=== PATIENT | female | born 1990 | race Caucasian/White ===

== ENCOUNTER 2018-11-20 10:36 | Emergency (ER) | payer OTHER ==
[2018-11-20 11:23] VITALS: PULSE 88; TEMP 98.8; BMI 43.5
--- NOTE | 2018-11-20 11:27 | PDOC ---
History of Present Illness - General Stated Complaint: HEADACHE Time Seen by Provider: 11/20/18 11:00 History Source: Patient Exam Limitations: No Limitations - History of Present Illness Initial Comments: 11/20/18 11:00 28YOF with complicated medical history of UTI diagnosed yesterday (started on abx), three prior brain surgeries for removal of an arachnoid cyst (two in the past year, one distantly about 20 years ago), left hemiplegia as complication from prior brain surgery, MS, epilepsy, major depression, anxiety, and ADHD who was BIBEMS from [facility] for headache all weekend worse this morning. She describes it as similar to her normal headaches for which she has been given Dilaudid and Fentanyl. She states she was given Tylenol at [facility] this morning but it did not help. She describes light and noise sensitivity but denies vision changes, speech/swallow changes, new neck pain/ back pain, new numbness/tingling/focal weakness, or other symptoms. Past History - Past Medical History Allergies/Adverse Reactions: Allergies Allergy/AdvReac Type Severity Reaction Status Date / Time No Known Allergies Allergy Verified 11/20/18 11:02 Home Medications: Ambulatory Orders Acetaminophen [Tylenol -] 1,000 mg PO Q8H PRN 11/20/18 Alprazolam [Xanax Xr] 1 mg PO Q8H 11/20/18 Baclofen [Lioresal -] 10 mg PO TID 11/20/18 Baclofen [Lioresal -] 20 mg PO HS 11/20/18 Cyanocobalamin [Vitamin B12 -] 1,000 mcg PO DAILY 11/20/18 Docusate Sodium [Colace] 100 mg PO Q8H 11/20/18 Ergocalciferol [Vitamin D2] 50,000 unit PO Q7D@1000 11/20/18 Gabapentin [Neurontin] 600 mg PO Q8H 11/20/18 Hydrocortisone 0.5% Cream [Hytone 0.5% Cream -] 1 applic TP DAILY 11/20/18 Hydromorphone HCl [Dilaudid] 8 mg PO Q6H PRN 11/20/18 Hydroxyzine Pamoate 25 mg PO TID 11/20/18 Ibuprofen [Motrin -] 400 mg PO QID PRN 11/20/18 Lamotrigine [Lamictal Xr] 200 mg PO HS 11/20/18 Levetiracetam 750 mg PO BID 11/20/18 Melatonin 10 mg PO HS 11/20/18 Nystatin Cream [Mycostatin] 1 applic TP BID 11/20/18 Pantoprazole Sodium [Protonix -] 40 mg PO DAILY 11/20/18 Ranitidine HCl [Zantac] 150 mg PO DAILY 11/20/18 Venlafaxine HCl ER [Effexor Xr -] 37.5 mg PO DAILY 11/20/18 Review of Systems - Review of Systems Able to Perform ROS?: Yes Comments:: 11/20/18 11:27 GEN: no fever, chills, malaise, generalized weakness, or weight change HEENT: no ear pain, sore throat, vision change, or eye pain CV: no chest pain, palpitations, lightheadedness, syncope, or edema RESP: no cough, wheezing, or SOB GI: no abdominal pain, nausea, vomiting, diarrhea, constipation, or white/black/ bloody stool : dysuria, no hematuria, incontinence, retention, bleeding, or discharge MSK: no neck/back pain, muscle weakness/pain, or joint swelling/pain NEURO: headache, photophobia, phonophobia, no seizure, vertigo, numbness, tingling, or focal weakness PSYCH: no substance use, no behavior change SKIN: no jaundice, no rash ROS otherwise negative except as noted in HPI *Physical Exam - Physical Exam Comments: 11/20/18 11:28 GENERAL: uncomfortable-appearing, laying on bed in dark room, A/Ox4, mild distress, answers questions appropriately HEENT: PERRLA, EOMI, moist mucous membranes, old well-healed craniotomy scar overlying right mormonism NECK/BACK: no midline ttp, no spinal stepoff or deformity, no hematoma, full ROM , neck supple CARDIOVASCULAR: regular rate/rhythm, normal S1S2, no MGR, strong peripheral pulses, capillary refill <2 seconds, extremities wwp, no edema LUNGS/RESPIRATORY: no respiratory distress, CTAB GI/ABDOMEN: symmetric [id number], normoactive BS, soft, no ttp, no midline pulsatile masses : no CVA tenderness EXTREMITIES: no muscle atrophy, no acute deformity SKIN: warm and dry, a bit pale, no jaundice, no rash, no bruising, no skin breakdown, no cuts, no lesions NEUROLOGICAL: GCS 15, CN II-XII grossly intact, 5/5 strength proximally and distally to right extremities, left extremity hemiplegia stated per baseline, no facial droop ED Treatment Course - LABORATORY CBC & Chemistry Diagram: 11/20/18 12:08 11/20/18 10:08 Medical Decision Making - Medical Decision Making 11/20/18 11:42 Adult female Pt p/w headache, no reported mechanism for injury, no new red flag symptoms (see HPI). JUNE not worse on awakening in the AM, no B symptoms, trauma, fever, syncope, vision loss, new n/t/w focally, sudden onset, etc. However she has complex h/o arachnoid cyst and MS. Initial Vital Signs Temp Pulse Resp BP Pulse Ox 98.8 F 88 19 119/63 99 11/20/18 10:37 11/20/18 10:37 11/20/18 10:37 11/20/18 10:37 11/20/18 10:37 Exam: As noted in Physical Exam section. DDX IBNLT: mass lesion, primary JUNE syndrome (tension/migraine/cluster/other incl. primary cough JUNE, exertional JUNE, postcoital JUNE), unlikely any other more serious etiology i.e. SAH (no sudden onset), venous sinus thrombosis, ruptured/ acutely expanded aneurysm, preeclampsia/eclampsia, encephalitis, meningitis, etc. W/U ordered: Labs as noted below Head CT [place] ordered: Reglan+Benadryl 11/20/18 12:27 I spoke with nursing [employer] representative on for [facility] now. She normally gets Dilaudid 8 mg q6h prn, last at 6:30am. She also got Tylenol 1000 mg at 10am. Ibuprofen 400 mg is on her AUG but she had none today. Per RN EMS was initially at [facility] to take her to a Urology appointment with Dr. Vidales. However the RN states the patient requested to have her BP checked and it was 180s/100s. Somehow the decision was made that she would come to the ED instead. EMS planned to take her to [facility] ED (she normally gets care at [facility]). However the patient requested to come to the [facility] ED instead per RN report. CT: Labs: Reassessment: Repeat VS: DISCHARGE This patient has gotten significant relief of symptoms while in the ED. On last reassessment, vitals are wnl, pain is reasonably controlled, and exam is benign. Workup is not concerning for emergency-level pathology at this time. This patient is appropriate for discharge home w/ close outpatient f/u. She is comfortable with this plan. She will take Motrin and/or Tylenol for pain. She will follow up with her primary care provider in the next 1-3 days. Specific return precautions are discussed and they will come back to the ER if necessary. *DC/Admit/Observation/Transfer Diagnosis at time of Disposition: Headache Qualifiers: Headache type: unspecified Headache chronicity pattern: unspecified pattern Intractability: not intractable Qualified Code(s): R51 - Headache - Discharge Dispostion Disposition: SNF FACILITY Condition at time of disposition: Stable Decision to Admit order: No - Referrals Referrals: Micah Burgess [Primary Care Provider] - - Patient Instructions Printed Discharge Instructions: DI for Headache Additional Instructions: You were seen in the ER for a headache. We did an exam, and we did not find any signs of an emergency. After our assessment, we believe you are not having a medical emergency and you are safe to go home. Please take [id number] pain relievers as recommended by your primary doctor. Stay very well-hydrated, and try avoiding foods containing the chemicals tyramine and nitrates (such as chocolate, cheese, and processed meats) because these are associated with migraine-type headaches. Follow up with your primary care provider(s) in the next 1-3 days. Call their clinic [facility], tell them you were seen in the er, and tell them you need an appointment. During this appointment, talk with your primary care provider about oral contraceptives (if you are taking them) because these also can be associated with some types of headaches. Please come back to the ER at any time, 24 hours a day, for any new or worsening symptoms, like worsening headache, new numbness/tingling, fainting, dizziness, new vision changes, high fever, or other symptoms. If you are having symptoms that make it unsafe to drive, please call 911. - Post Discharge Activity
[2018-11-20] MEDS ORDERED: METOCLOPRAMIDE HCL INJECTION 10 MG/2 ML VIAL IVPB ONE (11:38)
[2018-11-20] MEDS ORDERED: METOCLOPRAMIDE HCL INJECTION 10 MG/2 ML VIAL ONE (11:53)
[2018-11-20] MEDS ORDERED: HYDROmorphone HCL CARPU-JECT 2 MG/1 ML DISP.SYRIN IVPUSH ONE (12:38)
[2018-11-20 12:39] LABS: HCG,QUALITATIVE URINE Negative
[2018-11-20 12:44] LABS: EPI CELLS 0.2 /HPF (0-5/HPF); HYALINE CASTS 15 /lpf (0-8); PH,URINE 8.5 (5.0-8.0); URINE APPEARANCE CLEAR; URINE BACTERIA 6.9 /hpf (NEGATIVE); URINE BILIRUBIN NEGATIVE (NEGATIVE); URINE COLOR YELLOW; URINE GLUCOSE (UA) NEGATIVE (NEGATIVE); URINE KETONE NEGATIVE (NEGATIVE); URINE LEUK ESTERASE 3+ (NEGATIVE); URINE NITRITE NEGATIVE (NEGATIVE); URINE PROTEIN NEGATIVE (NEGATIVE); URINE RBC 3 /hpf (0-4); URINE UROBILINOGEN 0.2 mg/dL (0.2-1.0); URINE WBC 145 /hpf (0-5)
[2018-11-20 13:10] LABS: BASO % 0.4 % (0-2.0); EOS % 1.7 % (0-4.5); HEMATOCRIT 38.8 % (32.4-45.2); HEMOGLOBIN 13.3 GM/dL (10.7-15.3); LYMPH % 20.9 % (8-40); MCH 32.1 pg (25.7-33.7); MCHC 34.3 g/dl (32.0-36.0); MEAN CELL VOLUME 93.6 fl (80-96); MONO % 7.2 % (3.8-10.2); NEUT % 69.8 % (42.8-82.8); RBC 4.14 M/mm3 (3.60-5.2); RDW 11.7 % (11.6-15.6)
[2018-11-20 13:16] LABS: PLATELET COUNT 339 K/MM3 (134-434)
[2018-11-20 13:26] LABS: ALBUMIN 3.8 g/dl (3.4-5.0); BILIRUBIN,TOTAL 0.3 mg/dL (0.2-1); BLOOD UREA NITROGEN 5.1 mg/dL (7-18); CALCIUM 9.3 mg/dL (8.5-10.1); CREATININE 0.6 mg/dL (0.55-1.3); POTASSIUM 4.1 mmol/L (3.5-5.1); TOT PROT 7.2 g/dl (6.4-8.2)
--- NOTE | 2018-11-20 14:47 | PDOC ---
Documentation entered by Catherine Sweet SCRIBE, acting as scribe for Paulo Daniel MD. Paulo Daniel MD: This documentation has been prepared by the scribe, Catherine Sweet SCRIBE, under my direction and personally reviewed by me in its entirety. I confirm that the documentation accurately reflects all work, treatment, procedures, and medical decision making performed by me. Attending Attestation - Resident Resident Name: Debby Valenzuela - ED Attending Attestation I have performed the following: I have examined & evaluated the patient, The case was reviewed & discussed with the resident, I agree w/resident's findings & plan, Exceptions are as noted - HPI HPI: 11/20/18 12:27 The patient is a 28-year-old female from [facility], with a past medical history of 3 brain surgeries for removal of an arachnoid cyst (has been resected 3x, 2x in the past year and 1x about 20 years ago), left hemiplegia ( complication after brain surgery), MS, epilepsy, depression, anxiety, ADHD, who presents to the ED with feeling unwell with that she's been feeling generally weak, also endorses mild headache that she endorses a similar to her previous headaches. Patient has been on dilaudid for her headaches chronically. There is been no associated vision changes, focal numbness, tingling, weakness, fever, chills, cough, dysuria, urinary frequency. Allergies: NKA PCP: Dr. Micah Burgess - Physicial Exam PE: 11/20/18 12:28 GENERAL: The patient is awake, alert, and fully oriented, Nontoxic - in no acute distress, obese HEAD: Normocephalic, atraumatic. EYES: extraocular movements intact, sclera anicteric, conjunctiva clear. ENT: Normal voice, Moist mucous membranes. NECK: Normal range of motion, supple LUNGS: Breath sounds equal, clear to auscultation bilaterally. No wheezes, no rhonchi, no rales. HEART: Regular rate and rhythm, without murmur, rub or gallop. ABDOMEN: Soft, nontender, No guarding, no rebound.No CVA tenderness EXTREMITIES: Normal range of motion, no edema. NEUROLOGICAL: No facial assymetry, Normal speech, no movement/sensation in LUE/ LLE PSYCH: Normal mood, normal affect. SKIN: Warm, Dry, normal turgor, - Medical Decision Making 11/20/18 11:30 28y F hx of MS, arachnoid cyst (sp resection x 2 cb L hemiplegia), psych, presents with malaise for the past 2 days, notes she was recently treated for a UTI - denies any fever/chills, back pain, cp, abd pain, new vision changes, numbness/tingling/ewakness. Pt notes the headache is similar to previous headaches. exam at baseline will obtain blood work to r/o anemia, metaoblic derangement, head ct for her headache 11/20/18 15:21 pt feeling improved - notes that she would want to go home does not want to get her CT head - as pt is at baseline currently wand improved h/a will defer CT currently will dc back to [facility] with pmd/neuro fu return precautions wer discussed
[2018-11-20 15:36] VITALS: BP 122/84
== END 2018-11-20 15:49 ==
LOC: JER 10:36
PROC: 3E033GC Introduction of Other Therapeutic Substance into Peripheral Vein, Percutaneous Approach (ICD-10-PCS; principal; 2018-11-20)
PROC: 3E033GC Introduction of Other Therapeutic Substance into Peripheral Vein, Percutaneous Approach (ICD-10-PCS; 2018-11-20)
DX: R51 Headache (principal); F41.9 Anxiety disorder, unspecified; F32.9 Major depressive disorder, single episode, unspecified; F90.9 Attention-deficit hyperactivity disorder, unspecified type; G40.909 Epilepsy, unspecified, not intractable, without status epilepticus; G35 Multiple sclerosis; Z87.440 Personal history of urinary (tract) infections
CPT/HCPCS: 36415; 80053; 81003; 84703; 85025; 96374; 96375; 99282-25

== ENCOUNTER 2018-12-14 16:30 | Inpatient (IN) | payer OTHER ==
--- NOTE | 2018-12-14 17:44 | PDOC ---
History of Present Illness - General Chief Complaint: Headache Stated Complaint: HEADACHE Time Seen by Provider: 12/14/18 16:53 - History of Present Illness Initial Comments: Ms. Costello is a 28F s/p 3 craniotomies for arachnoid cyst (2 last year and 1 twenty years ago) with PMH of left hemiplegia, primary progressive MS, epilepsy , depression, anxiety, presenting today with swelling on the right temporal aspect of her head and headache. Report that the swelling started 3 weeks ago. Lives in a detention, reports that nurse noticed right eyelid droop. Reports photophobia and phonophobia. Describes the headache as throbbing, starting from the right side and spreading to the entire head and down her neck. Denies fever , denies cough, denies vision changes. She was seen here last month for similar complaints, but describes that this headache is worse. Past History - Past Medical History Allergies/Adverse Reactions: Allergies Allergy/AdvReac Type Severity Reaction Status Date / Time No Known Allergies Allergy Verified 11/20/18 11:02 Home Medications: Ambulatory Orders Alprazolam [Xanax Xr] 1 mg PO Q8H 11/20/18 Baclofen [Lioresal -] 10 mg PO TID 11/20/18 Baclofen [Lioresal -] 20 mg PO HS 11/20/18 Cyanocobalamin [Vitamin B12 -] 1,000 mcg PO DAILY 11/20/18 Docusate Sodium [Colace] 100 mg PO Q8H 11/20/18 Ergocalciferol [Vitamin D2] 50,000 unit PO Q7D@1000 11/20/18 Gabapentin [Neurontin] 600 mg PO Q8H 11/20/18 Hydrocortisone 0.5% Cream [Hytone 0.5% Cream -] 1 applic TP DAILY 11/20/18 Hydromorphone HCl [Dilaudid] 8 mg PO Q6H PRN 11/20/18 Hydroxyzine Pamoate 25 mg PO TID 11/20/18 Ibuprofen [Motrin -] 400 mg PO QID PRN 11/20/18 Lamotrigine [Lamictal Xr] 200 mg PO HS 11/20/18 Levetiracetam 750 mg PO BID 11/20/18 Melatonin 10 mg PO HS 11/20/18 Nystatin Cream [Mycostatin] 1 applic TP BID 11/20/18 Pantoprazole Sodium [Protonix -] 40 mg PO DAILY 11/20/18 Ranitidine HCl [Zantac] 150 mg PO DAILY 11/20/18 Venlafaxine HCl ER [Effexor Xr -] 37.5 mg PO DAILY 11/20/18 Acetaminophen 500 mg PO TID 12/14/18 Doxepin HCl [Sinequan -] 25 mg PO HS 12/14/18 Nystatin Cream [Mycostatin] 1 applic TP BID 12/14/18 Ondansetron [Zofran -] 4 mg PO TID 12/14/18 Sennosides [Senna] 8.6 mg PO HS 12/14/18 Anemia: Yes COPD: No GI Disorders: Yes (reflux) Psychiatric Problems: Yes (depression,anxiety,adhd) - Surgical History Neurologic Surgery: Yes - Suicide/Smoking/Psychosocial Hx Smoking History: Never smoked Review of Systems - Review of Systems Able to Perform ROS?: Yes Is the patient limited Romansh proficient: No Constitutional: Yes: See HPI. No: Chills, Fever HEENTM: Yes: See HPI, Other (photophobia, phonophobia ). No: Eye Pain, Recent change in vision, Hearing Loss, Throat Swelling, Mouth Swelling Respiratory: Yes: See HPI. No: Cough, Orthopnea, Shortness of Breath Cardiac (ROS): Yes: See HPI. No: Chest Pain, Edema, Irregular Heart Rate, Lightheadedness, Palpitations, Syncope ABD/GI: Yes: Constipated. No: Abdominal Distended, Nausea, Vomiting : Yes: See HPI, Burning, Dysuria. No: Discharge, Frequency, Flank Pain Musculoskeletal: Yes: See HPI, Muscle Weakness. No: Back Pain, Joint Swelling Integumentary: Yes: See HPI. No: Bruising, Erythema Neurological: Yes: See HPI, Headache, Paresthesia, Pre-Existing Deficit, Weakness. No: Numbness Psychiatric: Yes: Anxiety, Depression Endocrine: No: Symptoms Reported Hematologic/Lymphatic: No: Symptoms Reported *Physical Exam - Vital Signs Last Vital Signs Temp Pulse Resp BP Pulse Ox 98.2 F 80 19 117/69 98 12/14/18 16:40 12/14/18 16:40 12/14/18 16:40 12/14/18 16:40 12/14/18 16:40 - Physical Exam General Appearance: Yes: Appropriately Dressed. No: Apparent Distress HEENT: positive: EOMI, MIRYAM, Normal ENT Inspection, Normal Voice, Pharynx Normal , Other (right sided eye lid droop ). negative: Tonsillar Exudate Neck: positive: Tender, Trachea midline, Supple Respiratory/Chest: positive: Lungs Clear, Normal Breath Sounds. negative: Chest Tender, Respiratory Distress, Accessory Muscle Use Cardiovascular: positive: Regular Rhythm, Regular Rate. negative: Edema, JVD Vascular Pulses: Dorsalis-Pedis (R): 2+, Doralis-Pedis (L): 2+ Gastrointestinal/Abdominal: positive: Soft. negative: Tender, Organomegaly, Pulsatile Mass Musculoskeletal: positive: Normal Inspection. negative: CVA Tenderness Extremity: positive: Normal Capillary Refill. negative: Normal Range of Motion (left sided hemiplegia, right sided weakness ), Tender Integumentary: positive: Normal Color, Dry, Warm. negative: Cyanotic, Erythema Neurologic: positive: Fully Oriented, Alert, Normal Response, Respond to painful stimul (diminished sensation on left side of face, no sensation on left side of body ), Responsive, Finger to Nose (intact ). negative: water pump servicer II-XII NML intact (right sided eye lid droop, limited assessment ), Motor Strength 5/5 ( left hemiplegia, RUE and RLE 2/5 strength ), EOM Palsy ED Treatment Course - LABORATORY CBC & Chemistry Diagram: 12/14/18 18:19 12/14/18 18:19 Medical Decision Making - Medical Decision Making 12/14/18 18:16 28F s/p 3 neurological surgeries for arachnoid cyst with PMH of left hemiplegia , primary progressive MS, epilepsy, depression, anxiety, presenting with right sided temporal facial swelling and headache. Headache resembles those she has on a daily basis. CT Head w/o Contrast on November 28, 2018 at [facility] shows: Right sided post operative changes are demonstrated. Presumed arachnoid cyst involving the right middle cranial fossa is redemonstrated. Multiple previously demonstrated supratentorial and infratentorial foci of abnormal signal concerning for demyelinating disease are poorly visualized on the current CT examination. Consider follow-up precontrast and postcontrast MRI examination of the brain to assess for stability of these findings. No acute intracranial hemorrhage, evidence of acute territorial infarct or midline shift of this noncontrast CT. Per neurologist Dr. Juan Carlos Cunningham, would like a follow up MRI to the CT scan she had 3 weeks ago. We discussed with the patient who states that her symptoms have not changed as of the last CT scan 3 weeks ago and she would only like the MRI. CT findings from the scan 3 weeks ago described above. Will obtain CBC, CMP, UA, CXR, EKG, and plan for admission. 12/14/18 18:40 EKG shows NSR 79 bpm, no axis deviation, no ST elevation/depression, QTc 426 ms. 12/14/18 19:59 Pt reassessed after usual dose of dilaudid. Continues having headache, very mildly improved. Dilaudid 2 mg IV and Reglan 10 mg IV given. Will plan to admit. 12/14/18 20:[address] Curran (neurologist) who recommends IV depakote for the patient's IV headache and defers admission decision to the inpatient team. 12/14/18 21:08 Spoke with Page Sanchez NP, who agrees to come down and admit the patient for Dr. Nick's group. *DC/Admit/Observation/Transfer Diagnosis at time of Disposition: Headache Qualifiers: Headache type: unspecified Headache chronicity pattern: chronic headache - Discharge Dispostion Condition at time of disposition: Stable Decision to Admit order: Yes - Referrals - Patient Instructions - Post Discharge Activity
[2018-12-14] MEDS ORDERED: HYDROmorphone HCL CARPU-JECT 2 MG/1 ML DISP.SYRIN IVPB ONE (18:30)
[2018-12-14] MEDS ORDERED: ACETAMINOPHEN 1000 MG/100 ML VIAL (NON FORMULARY) IVPB ONE (18:30)
[2018-12-14] MEDS ORDERED: HYDROmorphone HCL 2 MG TABLET PO ONE ×2 (18:35→22:25)
[2018-12-14] MEDS ORDERED: ACETAMINOPHEN INJECTION 100 ML IVPB ONE (18:39)
[2018-12-14] MEDS ORDERED: HYDROmorphone HCL 2 MG TABLET ONE ×2 (18:39→22:50)
[2018-12-14 18:52] LABS: BASO % 0.3 % (0-2.0); EOS % 2.5 % (0-4.5); HEMATOCRIT 34.9 % (32.4-45.2); LYMPH % 29.2 % (8-40); MCH 31.6 pg (25.7-33.7); MCHC 34.4 g/dl (32.0-36.0); MEAN CELL VOLUME 91.7 fl (80-96); MEAN PLT VOLUME 7.9 fl (7.5-11.1); MONO % 9.7 % (3.8-10.2); NEUT % 58.3 % (42.8-82.8); PLATELET COUNT 342 K/MM3 (134-434); RBC 3.81 M/mm3 (3.60-5.2); RDW 11.6 % (11.6-15.6); WHITE BLOOD COUNT 6.6 K/mm3 (4.0-10.0)
[2018-12-14 19:02] LABS: ALBUMIN 3.6 g/dl (3.4-5.0); BILIRUBIN,TOTAL 0.2 mg/dL (0.2-1); BLOOD UREA NITROGEN 8.3 mg/dL (7-18); CALCIUM 8.8 mg/dL (8.5-10.1); CREATININE 0.6 mg/dL (0.55-1.3); TOT PROT 6.7 g/dl (6.4-8.2)
[2018-12-14 19:21] LABS: EPI CELLS 4.2 /HPF (0-5/HPF); HYALINE CASTS 29 /lpf (0-8); URINE APPEARANCE TURBID; URINE BILIRUBIN NEGATIVE (NEGATIVE); URINE COLOR YELLOW; URINE GLUCOSE (UA) NEGATIVE (NEGATIVE); URINE KETONE NEGATIVE (NEGATIVE); URINE LEUK ESTERASE 3+ (NEGATIVE); URINE NITRITE POSITIVE (NEGATIVE); URINE PROTEIN TRACE (NEGATIVE); URINE RBC 5 /hpf (0-4); URINE UROBILINOGEN 0.2 mg/dL (0.2-1.0); URINE WBC 563 /hpf (0-5)
--- NOTE | 2018-12-14 19:21 | PDOC ---
Documentation entered by Mechelle Andrews SCRIBE, acting as scribe for Siri Hong MD. Siri Hong MD: This documentation has been prepared by the Darryl zee Xhesika, SCRIBE, under my direction and personally reviewed by me in its entirety. I confirm that the documentation accurately reflects all work, treatment, procedures, and medical decision making performed by me. Attending Attestation - Resident Resident Name: Hollis Fraga - ED Attending Attestation I have performed the following: I have examined & evaluated the patient, The case was reviewed & discussed with the resident, I agree w/resident's findings & plan - HPI HPI: 12/14/18 19:15 The patient is a 28-year-old female from [facility], with a past medical history of 3 brain surgeries for removal of an arachnoid cyst (has been resected 3x, 2x in the past year and 1x about 20 years ago), left hemiplegia ( complication after brain surgery), MS, epilepsy, depression, anxiety, ADHD, who presents to the ED with 1 week of headache and swelling of the R temporal aspect of her head. The patient describes the headache as a throbbing sensation that began at her right side and radiates to the entire head and down her neck. The patient states she endorses photophobia secondary to her symptoms. The patient states her nurse at [facility] noticed right eyelid droop yesterday. The patient states she was seen in ED for headaches, however, this is worse than prior headache since last visit last head CT about 3 weeks ago, post surgical changes but no acute pathology Allergies: NKA PCP: Dr. Micah Burgess 12/14/18 19:20 12/14/18 19:22 - Physicial Exam PE: 12/14/18 19:16 Agree with the resident's HPI and PE as documented in the electronic medical record. awake and alert, well appearing, rt temporal area of swelling, surgical scar healed, EOMI, PERRL, MMM, nl conjunctiva, anicteric; neck supple. lungs clear, RRR, abdomen soft nontender. Back nontender. No peripheral edema. normal color for ethnicity, WWP. right eyelid droop. remainder of CN II-XII grossly intact left arm and leg hemiplegia - baseline right arm and leg 5/5, SILT. speech clear 12/14/18 19:19 12/14/18 20:52 12/19/18 20:07 - Medical Decision Making 12/14/18 19:19 See HPI for details. Prior notes reviewed, including admissions, discharges and consultations. Vital signs reviewed, wnl. ddx migraine, tension headache, infection, cyst, bleed laboratory results and imaging reviewed, basic labs and lytes wnl, EKG normal sinus rhythm at 79 bpm, no interval abnormalities, narrow QRS, ST and T wave segments and morphology normal. Nonspecific T wave abnormalities ED course -interventions: analgesia, dilaudid (PO home dose and IV rescue), reglan, tylenol - some improvement. treating as migraine but also with baseline neuro abnormalities and arachnoid cyst with prior imaging last month per records and discussion with facility neurologist Dr Cunningham by resident, with her sx, requested admission/NSG cs and MRI imaging with recent change and worsening headache cs with Dr Curran, per request of UMBRELLA SUPERVISOR and admitting service s/o DEVIKA Sanchez for admission, will go to Dr Parish Dumont 12/19/18 20:07 Heart Score/ECG Review #1 ECG reviewed & interpreted by me at: 18:20 General ECG Interpretation: Sinus Rhythm, Normal Rate, Normal Intervals Compared to previous ECG there are: Previous ECG unavail 12/14/18 19:50 EKG normal sinus rhythm at 79 bpm, no interval abnormalities, narrow QRS, ST and T wave segments and morphology normal. Nonspecific T wave abnormalities in III
[2018-12-14] MEDS ORDERED: HYDROmorphone HCL CARPU-JECT 2 MG/1 ML DISP.SYRIN IVPUSH ONE (19:55)
[2018-12-14] MEDS ORDERED: METOCLOPRAMIDE HCL INJECTION 10 MG/2 ML VIAL IVPUSH ONE (19:55)
[2018-12-14] MEDS ORDERED: HYDROmorphone HCl 2 MG/ML VIAL ONE (20:05)
[2018-12-14] MEDS ORDERED: LIDOCAINE 5% TOPICAL PATCH TP ONE (20:05)
[2018-12-14] MEDS ORDERED: METOCLOPRAMIDE HCL INJECTION 10 MG/2 ML VIAL ONE (20:05)
[2018-12-14] MEDS ORDERED: LIDOCAINE 5% TOPICAL PATCH ONE (22:09)
[2018-12-15] MEDS: LIDOCAINE PATCH REMOVAL MC SCH ×2 (00:09→22:06)
--- NOTE | 2018-12-15 00:57 | HP ---
Admitting History and Physical - Primary Care Physician PCP: Micah Burgess - Admission Chief Complaint: Headache, R- Facial Swelling History of Present Illness: This is a 28 y/o woman from [facility] with a significant medical history of three brain surgeries for removal of an arachnoid cyst (has been resected 3x, 2x in the past year and 1x about 20 years ago), left hemiplegia (complication after brain surgery), MS, Epilepsy, Depression, Anxiety, ADHD. Who presents to the ED with 1 week of headache and swelling of the R temporal aspect of her head. The patient describes the headache as a "throbbing sensation" that began at her right side and radiates to the entire head and down her neck. The patient reports photophobia. The patient states that her nurse at [facility] noticed her right eyelid droop yesterday. The patient states she was seen in ED for headaches, however, this is worse than prior headache since last visit last head CT about 3 weeks ago, post surgical changes but no acute pathology. The patient reports that her neurologist at the facility wants her to have a Brain MRI. 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: Multiple Sclerosis, Seizure (epilepsy) Psych: Yes: Anxiety, Depression, Other (ADHD) Musculoskeletal: Yes: Hemiplegia (left) - Past Surgical History Past Surgical History: Yes: Craniotomy (Crainoplasty) - Smoking History Smoking history: Never smoked - Social History Usual Living Arrangement: Yes: Correction ADL: Support Services History of Recent Travel: No Home Medications - Allergies Allergies/Adverse Reactions: Allergies Allergy/AdvReac Type Severity Reaction Status Date / Time No Known Allergies Allergy Verified 11/20/18 11:02 - Home Medications Home Medications: Ambulatory Orders Alprazolam [Xanax Xr] 1 mg PO Q8H 11/20/18 Baclofen [Lioresal -] 10 mg PO TID 11/20/18 Baclofen [Lioresal -] 20 mg PO HS 11/20/18 Cyanocobalamin [Vitamin B12 -] 1,000 mcg PO DAILY 11/20/18 Docusate Sodium [Colace] 100 mg PO Q8H 11/20/18 Ergocalciferol [Vitamin D2] 50,000 unit PO Q7D@1000 11/20/18 Gabapentin [Neurontin] 600 mg PO Q8H 11/20/18 Hydrocortisone 0.5% Cream [Hytone 0.5% Cream -] 1 applic TP DAILY 11/20/18 Hydromorphone HCl [Dilaudid] 8 mg PO Q6H PRN 11/20/18 Hydroxyzine Pamoate 25 mg PO TID 11/20/18 Ibuprofen [Motrin -] 400 mg PO QID PRN 11/20/18 Lamotrigine [Lamictal Xr] 200 mg PO HS 11/20/18 Levetiracetam 750 mg PO BID 11/20/18 Melatonin 10 mg PO HS 11/20/18 Nystatin Cream [Mycostatin] 1 applic TP BID 11/20/18 Pantoprazole Sodium [Protonix -] 40 mg PO DAILY 11/20/18 Ranitidine HCl [Zantac] 150 mg PO DAILY 11/20/18 Venlafaxine HCl ER [Effexor Xr -] 37.5 mg PO DAILY 11/20/18 Acetaminophen 500 mg PO TID 12/14/18 Doxepin HCl [Sinequan -] 25 mg PO HS 12/14/18 Nystatin Cream [Mycostatin] 1 applic TP BID 12/14/18 Ondansetron [Zofran -] 4 mg PO TID 12/14/18 Sennosides [Senna] 8.6 mg PO HS 12/14/18 Family Disease History - Family Disease History Family History: Unable to Obtain Review of Systems - Review of Systems Constitutional: reports: No Symptoms Eyes: reports: Photophobia, Other (right eye lid droop) HENT: reports: No Symptoms Neck: reports: No Symptoms Cardiovascular: reports: No Symptoms Respiratory: reports: No Symptoms Gastrointestinal: reports: No Symptoms Genitourinary: reports: No Symptoms Breasts: reports: No Symptoms Reported Musculoskeletal: reports: Muscle Weakness (chronic) Neurological: reports: Headache, Pre-Existing Deficit Endocrine: reports: No Symptoms Hematology/Lymphatic: reports: No Symptoms Psychiatric: reports: No Symptoms Pain Intensity: 7 Physical Examination Vital Signs: Vital Signs Temperature 98.5 F 12/14/18 22:55 Pulse Rate 77 12/14/18 22:55 Respiratory Rate 19 12/14/18 22:55 Blood Pressure 119/70 12/14/18 22:55 O2 Sat by Pulse Oximetry (%) 99 12/14/18 22:55 Constitutional: Yes: Anxious, Mild Distress, Obese Eyes: Yes: Conjunctiva Clear, EOM Intact, PERRL HENT: Yes: WNL, Atraumatic, Normocephalic Neck: Yes: WNL, Supple, Trachea Midline Cardiovascular: Yes: WNL, Regular Rate and Rhythm, S1, S2 Respiratory: Yes: WNL, Regular, CTA Bilaterally Gastrointestinal: Yes: WNL, Normal Bowel Sounds, Soft, Abdomen, Obese ...Rectal Exam: Yes: Deferred Renal/: Yes: [place] Present Breast(s): Yes: WNL Musculoskeletal: Yes: Muscle Weakness (L-sided- exisiting deficit) Edema: No Peripheral Pulses WNL: Yes Neurological: Yes: Alert, Oriented, Pre-Existing Deficit, Weakness. No: Facial Droop Psychiatric: Yes: WNL, Alert, Oriented Labs: CBC, BMP 12/14/18 18:19 12/14/18 18:19 Laboratory Results - last 24 hr 12/14/18 12/14/18 12/14/18 18:19 18:19 18:19 WBC 6.6 RBC 3.81 Hgb 12.0 Hct 34.9 MCV 91.7 MCH 31.6 MCHC 34.4 RDW 11.6 Plt Count 342 MPV 7.9 Absolute Neuts (auto) 3.9 Neutrophils % 58.3 Lymphocytes % 29.2 D Monocytes % 9.7 Eosinophils % 2.5 Basophils % 0.3 Nucleated RBC % 0 Sodium 140 Potassium 4.0 Chloride 106 Carbon Dioxide 30 Anion Gap 4 L BUN 8.3 Creatinine 0.6 Est GFR (CKD-EPI)AfAm 142.76 Est GFR (CKD-EPI)NonAf 123.17 Random Glucose 91 Calcium 8.8 Total Bilirubin 0.2 AST 12 L ALT 19 Alkaline Phosphatase 69 Total Protein 6.7 Albumin 3.6 Serum , Qual Negative Urine Color Urine Appearance Urine pH Ur Specific [place] Urine Protein Urine Glucose (UA) Urine Ketones Urine Blood Urine Nitrite Urine Bilirubin Urine Urobilinogen Ur Leukocyte Esterase Urine WBC (Auto) Urine RBC (Auto) Urine Casts (Auto) U Pathogenic Cast Auto U Epithel Cells (Auto) Urine Bacteria (Auto) 12/14/18 19:03 WBC RBC Hgb Hct MCV MCH MCHC RDW Plt Count MPV Absolute Neuts (auto) Neutrophils % Lymphocytes % Monocytes % Eosinophils % Basophils % Nucleated RBC % Sodium Potassium Chloride Carbon Dioxide Anion Gap BUN Creatinine Est GFR (CKD-EPI)AfAm Est GFR (CKD-EPI)NonAf Random Glucose Calcium Total Bilirubin AST ALT Alkaline Phosphatase Total Protein Albumin Serum , Qual Urine Color Yellow Urine Appearance Turbid Urine pH 5.0 D Ur Specific [place] 1.021 Urine Protein Trace Urine Glucose (UA) Negative Urine Ketones Negative Urine Blood Trace Urine Nitrite Positive H Urine Bilirubin Negative Urine Urobilinogen 0.2 Ur Leukocyte Esterase 3+ H Urine WBC (Auto) 563 Urine RBC (Auto) 5 Urine Casts (Auto) 29 U Pathogenic Cast Auto None U Epithel Cells (Auto) 4.2 Urine Bacteria (Auto) 6925.0 Current Medications Generic Name Dose Route Start Last Admin Trade Name Freq PRN Reason Stop Dose Admin Acetaminophen 650 mg 12/15/18 01:19 Tylenol - PO Q6H PRN PAIN LEVEL 6-10 Baclofen 20 mg 12/15/18 22:00 Lioresal - PO HS [facility] Baclofen 10 mg 12/15/18 06:00 Lioresal - PO TID [facility] Diphenhydramine HCl 25 mg 12/15/18 03:00 Benadryl - PO 12/15/18 03:01 ONCE ONE Docusate Sodium 100 mg 12/15/18 02:58 Colace - PO TID [facility] Doxepin HCl 25 mg 12/15/18 22:00 Sinequan - PO HS [facility] Gabapentin 600 mg 12/15/18 02:45 Neurontin - PO TID [facility] Levetiracetam 500 mg/ 750 mg 12/15/18 02:45 Levetiracetam 250 mg PO BID [facility] Miscellaneous 1 each 12/14/18 22:00 12/15/18 00:09 Lidoderm Patch Removal MC 1 each DAILY@2200 [facility] Administration Non-Formulary Medication 8 mg 12/15/18 06:00 Hydromorphone Hcl [Dilaudid] PO Q6H PRN PAIN Non-Formulary Medication 200 mg 12/15/18 22:00 Lamotrigine [Lamictal Xr] PO HS [facility] Pantoprazole Sodium 40 mg 12/15/18 10:00 Protonix - PO DAILY [facility] Ranitidine HCl 150 mg 12/15/18 10:00 Zantac - PO DAILY [facility] Senna tab 12/15/18 22:00 Senna - PO HS [facility] Venlafaxine HCl 37.5 mg 12/15/18 10:00 Effexor Xr - PO DAILY [facility] - Results Chest X-ray: Image Reviewed Cat Scan: Pending EKG: Image Reviewed Problem List - Problems (1) Headache Assessment/Plan: r/o ICH Head CT- neg ICH, Mass Appreciate Neurology consult- aware per ED resident Neuro checks Monitor vitals Given Dilaudid and Reglan in ED with minimal relief Appreciate Pain Management Code(s): R51 - HEADACHE Qualifiers: Headache type: unspecified Headache chronicity pattern: chronic headache (2) Right facial swelling Assessment/Plan: s/p Craniotomy s/p Cranioplasty Head CT- neg ICH, mass Appreciate Neurology consult HOB elevated Aspiration Precautions Code(s): R22.0 - LOCALIZED SWELLING, MASS AND LUMP, HEAD (3) Epilepsy Assessment/Plan: stable Continue home meds Seizure Precautions Monitor vitals Code(s): G40.909 - EPILEPSY, UNSP, NOT INTRACTABLE, WITHOUT STATUS EPILEPTICUS (4) Multiple sclerosis Code(s): G35 - MULTIPLE SCLEROSIS (5) Left hemiplegia Assessment/Plan: Chronic Fall Precautions Code(s): G81.94 - HEMIPLEGIA, UNSPECIFIED AFFECTING LEFT NONDOMINANT SIDE (6) Depression Assessment/Plan: Continue home meds Code(s): F32.9 - MAJOR DEPRESSIVE DISORDER, SINGLE EPISODE, UNSPECIFIED (7) Anxiety Assessment/Plan: Continue home meds Code(s): F41.9 - ANXIETY DISORDER, UNSPECIFIED (8) ADHD Assessment/Plan: Continue home meds Code(s): F90.9 - ATTENTION-DEFICIT HYPERACTIVITY DISORDER, UNSPECIFIED TYPE Assessment/Plan This is a 28 y/o woman with a PMHx of Brain Sx x3 (for arachnoid cyst), Left Hemiplegia ( complication Brain Surgery), MS, Epilepsy, Depression, ADHD, Anxiety. Admitted for Intractable Headache, R- Facial Swelling for further evaluation of their emergent condition. Plan: See Problem List FEN Replete lytes prn Regular Diet DVT ppx SCDs TEDs Visit type - Emergency Visit Emergency Visit: Yes ED Registration Date: 12/14/18 Care time: The patient presented to the Emergency Department on the above date and was hospitalized for further evaluation of their emergent condition. - New Patient This patient is new to me today: Yes Date on this admission: 12/14/18 - Critical Care Critical Care patient: No
[2018-12-15] MEDS ORDERED: DOCUSATE SODIUM 100 MG CAPSULE (FP) PO SCH (01:15)
[2018-12-15] MEDS ORDERED: PATIENT'S OWN MEDICATION (NON-FORMULARY) (Levetiracetam [Levetiracetam] 750 MG) PO SCH (01:15)
[2018-12-15] MEDS ORDERED: METOCLOPRAMIDE HCL INJECTION 10 MG/2 ML VIAL IVPUSH ONE (02:28)
[2018-12-15] MEDS ORDERED: diphenhydrAMINE HCL 25 MG CAPSULE (FP) PO ONE ×2 (03:00→04:15)
[2018-12-15] MEDS: GABAPENTIN 300 MG CAPSULE (FP) PO SCH ×4 (04:10→21:55)
[2018-12-15 05:05] VITALS: BMI 40.3
[2018-12-15] MEDS: ACETAMINOPHEN 325 MG TABLET (FP) PO PRN ×3 (05:39→19:23)
[2018-12-15] MEDS: DOCUSATE SODIUM 100 MG CAPSULE (FP) PO SCH ×3 (06:40→21:54)
[2018-12-15] MEDS: BACLOFEN 10 MG TABLET (FP) PO SCH ×3 (06:40→22:08)
[2018-12-15] MEDS ORDERED: PT OWN MED DRAWER 7, Y5N ONE ×4 (10:53→22:10)
[2018-12-15 11:00] LABS: BASO % 0.2 % (0-2.0); HEMOGLOBIN 12.3 GM/dL (10.7-15.3); MEAN PLT VOLUME 8.2 fl (7.5-11.1); WHITE BLOOD COUNT 6.5 K/mm3 (4.0-10.0)
[2018-12-15 11:08] LABS: EOS % 2.1 % (0-4.5); HEMATOCRIT 35.7 % (32.4-45.2); LYMPH % 23.7 % (8-40); MCH 31.6 pg (25.7-33.7); MCHC 34.6 g/dl (32.0-36.0); MEAN CELL VOLUME 91.4 fl (80-96); MONO % 8.3 % (3.8-10.2); NEUT % 65.7 % (42.8-82.8); PLATELET COUNT 341 K/MM3 (134-434); RDW 11.5 % (11.6-15.6)
[2018-12-15] MEDS: PANTOPRAZOLE 40 MG TABLET (FP) PO SCH (11:09)
[2018-12-15] MEDS: RANITIDINE HCL 150 MG TABLET (FP) PO SCH (11:09)
--- NOTE | 2018-12-15 11:22 | CONSULT ---
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, Seizure (epilepsy) ...LMP: 10/18/18 Psych: Yes: Anxiety, Depression, Other (ADHD) Musculoskeletal: Yes: Hemiplegia (left) - Past Surgical History Past Surgical History: Yes: Craniotomy (Crainoplasty) - Alcohol/Substance Use Hx Alcohol Use: No - Smoking History Smoking history: Never smoked - Social History ADL: Support Services History of Recent Travel: No Home Medications - Allergies Allergies/Adverse Reactions: Allergies Allergy/AdvReac Type Severity Reaction Status Date / Time No Known Allergies Allergy Verified 11/20/18 11:02 - Home Medications Home Medications: Ambulatory Orders Alprazolam [Xanax Xr] 1 mg PO Q8H 11/20/18 Baclofen [Lioresal -] 10 mg PO TID 11/20/18 Baclofen [Lioresal -] 20 mg PO HS 11/20/18 Cyanocobalamin [Vitamin B12 -] 1,000 mcg PO DAILY 11/20/18 Docusate Sodium [Colace] 100 mg PO Q8H 11/20/18 Ergocalciferol [Vitamin D2] 50,000 unit PO Q7D@1000 11/20/18 Gabapentin [Neurontin] 600 mg PO Q8H 11/20/18 Hydrocortisone 0.5% Cream [Hytone 0.5% Cream -] 1 applic TP DAILY 11/20/18 Hydromorphone HCl [Dilaudid] 8 mg PO Q6H PRN 11/20/18 Hydroxyzine Pamoate 25 mg PO TID 11/20/18 Ibuprofen [Motrin -] 400 mg PO QID PRN 11/20/18 Lamotrigine [Lamictal Xr] 200 mg PO HS 11/20/18 Levetiracetam 750 mg PO BID 11/20/18 Melatonin 10 mg PO HS 11/20/18 Nystatin Cream [Mycostatin] 1 applic TP BID 11/20/18 Pantoprazole Sodium [Protonix -] 40 mg PO DAILY 11/20/18 Ranitidine HCl [Zantac] 150 mg PO DAILY 11/20/18 Venlafaxine HCl ER [Effexor Xr -] 37.5 mg PO DAILY 11/20/18 Acetaminophen 500 mg PO TID 12/14/18 Doxepin HCl [Sinequan -] 25 mg PO HS 12/14/18 Nystatin Cream [Mycostatin] 1 applic TP BID 12/14/18 Ondansetron [Zofran -] 4 mg PO TID 12/14/18 Sennosides [Senna] 8.6 mg PO HS 12/14/18 Physical Exam Vital Signs: Vital Signs Temperature 98.1 F 12/15/18 04:45 Pulse Rate 92 H 12/15/18 04:45 Respiratory Rate 18 12/15/18 04:45 Blood Pressure 128/78 12/15/18 04:45 O2 Sat by Pulse Oximetry (%) 100 12/15/18 05:45 Labs: CBC, BMP 12/15/18 09:50 Problem List - Problems (1) Headache Code(s): R51 - HEADACHE Qualifiers: Headache type: unspecified Headache chronicity pattern: chronic headache Assessment Plan - Diagnosis (1) Headache Status: Acute Qualifiers: Headache type: unspecified Headache chronicity pattern: chronic headache - Plan Plan: as her headache is not under control (VAS around 5 to 7)with hydromorphone 8mg prn q.6h, i will recommend to switch patient for now to Fentanyl patch 50mcg q.72h and continue with hydromorphone 2mg Q6hr PRN for breakthrough pain. Please , dont hesitate to contact me at [phone] for any question and thank you .
[2018-12-15 11:29] LABS: BLOOD UREA NITROGEN 6.4 mg/dL (7-18); CALCIUM 8.7 mg/dL (8.5-10.1); CREATININE 0.4 mg/dL (0.55-1.3); POTASSIUM 4.2 mmol/L (3.5-5.1)
--- NOTE | 2018-12-15 11:44 | PN ---
Progress Note, Physician History of Present Illness: This is a 28 y/o woman with a PMHx of Brain Sx x3 (for arachnoid cyst), Left Hemiplegia ( complication Brain Surgery), MS, Epilepsy, Depression, ADHD, Anxiety. Admitted for Intractable Headache, R- Facial Swelling for further evaluation of their emergent condition. - Current Medication List Current Medications: Active Medications Acetaminophen (Tylenol -) 650 mg PO Q6H PRN PRN Reason: PAIN LEVEL 6-10 Last Admin: 12/15/18 05:39 Dose: 650 mg Baclofen (Lioresal -) 20 mg PO [facility] Baclofen (Lioresal -) 10 mg PO TID [facility] Last Admin: 12/15/18 06:40 Dose: 10 mg Docusate Sodium (Colace -) 100 mg PO TID [facility] Last Admin: 12/15/18 06:40 Dose: 100 mg Doxepin HCl (Sinequan -) 25 mg PO [facility] Gabapentin (Neurontin -) 600 mg PO TID [facility] Last Admin: 12/15/18 06:38 Dose: 600 mg Hydromorphone HCl (Dilaudid -) 8 mg PO Q4H PRN PRN Reason: PAIN SCALE 5-10 Last Admin: 12/15/18 11:20 Dose: 8 mg Lamotrigine (Lamictal -) 200 mg PO [facility] Levetiracetam 500 mg/ (Levetiracetam 250 mg) 750 mg PO BID [facility] Last Admin: 12/15/18 10:41 Dose: Not Given Miscellaneous (Lidoderm Patch Removal) 1 each MC DAILY@2200 [facility] Last Admin: 12/15/18 00:09 Dose: 1 each Pantoprazole Sodium (Protonix -) 40 mg PO DAILY [facility] Last Admin: 12/15/18 11:09 Dose: 40 mg Ranitidine HCl (Zantac -) 150 mg PO DAILY [facility] Last Admin: 12/15/18 11:09 Dose: 150 mg Senna (Senna -) 1 tab PO [facility] Venlafaxine HCl (Effexor Xr -) 37.5 mg PO DAILY [facility] - Objective Vital Signs: Vital Signs Temperature 98.1 F 12/15/18 04:45 Pulse Rate 92 H 12/15/18 04:45 Respiratory Rate 18 12/15/18 04:45 Blood Pressure 128/78 12/15/18 04:45 O2 Sat by Pulse Oximetry (%) 100 12/15/18 05:45 Cardiovascular: Yes: S1, S2 Respiratory: Yes: Regular, CTA Bilaterally Gastrointestinal: Yes: Normal Bowel Sounds, Soft Neurological: Yes: Alert, Pre-Existing Deficit, Weakness Labs: CBC, BMP 12/15/18 09:50 12/15/18 09:50 Problem List - Problems (1) Headache Assessment/Plan: Head CT- neg ICH, Mass Neurology consult- MRI OF HEAD Neuro checks Monitor vitals Dilaudid PRN Pain Management \ Code(s): R51 - HEADACHE Qualifiers: Headache type: unspecified Headache chronicity pattern: chronic headache (2) Arachnoid cyst Assessment/Plan: s/p Craniotomy s/p Cranioplasty Head CT- neg ICH, mass Appreciate Neurology consult HOB elevated Aspiration Precautions Code(s): G93.0 - CEREBRAL CYSTS (3) UTI (urinary tract infection) Assessment/Plan: ABX PER ID' AWAIT CULTURES Code(s): N39.0 - URINARY TRACT INFECTION, SITE NOT SPECIFIED (4) Epilepsy Assessment/Plan: stable Continue home meds Seizure Precautions Monitor vitals Code(s): G40.909 - EPILEPSY, UNSP, NOT INTRACTABLE, WITHOUT STATUS EPILEPTICUS (5) Multiple sclerosis Code(s): G35 - MULTIPLE SCLEROSIS
--- NOTE | 2018-12-15 13:19 | CONSULT ---
Consult - text type - Consultation Consultation Note: NEUROLOGY CONSULT GREATLY APPRECIATED: Events reviewed and discussed with ER staff last night, nursing staff today and Arianne Snow. Patient examined. This 28 yo RH woman is from [facility] and has children ages 7,9. Non- ambulatory in [facility] named [facility]. PMHx:Migraines, "primary progressive MS", epilepsy, depression, anxiety, chronic pain, and indwelling ny. Surgical history: 3 craniotomies for arachnoid cyst (2 last year and 1 twenty years ago). Pt claims with residual left hemiplegia "since the surgery" which "nobody can explain." On: Xanax, Baclofen, B12, gabapentin 600 mg Q8H, Ibuprofen, lamotrigine 200 HS, keppra 750 BID, melatonin, pantoprazole, zantac, effexor 37.5 HS. Currently being followed by Dr. Juan Carlos Cunningham, neurologist, for her migraines, MS , seizures. Believes she was given a diagnosis of PPMS approximately 5 years ago by MRI (at [place]?). Does not recall having an LP done. Currently on Ocrevus infusions. Hx of holocranial headaches since age 7 with associated phonophobia, photophobia , kinesiophobia, N/V. These have became daily constant H/A x 1 month. Believes she tried many treatments for Migraine and these were ineffective, but cannot recall medications. Admitted after intractable headache described as "pulsing" and "throbbing" with associated R facial droop and R temporal "swelling." Today she notes resolution of facial droop, still with mild headache. Denies aura before her migraines but does note Burning rubber smell prior to her seizures- controlled on current AED regimen. Review of systems sig for mostly nocturnal sensations of pain in her feet, knees and sometimes "whole body" "falling asleep" awakening her from sleep. FH+ 9 year old daughter with headaches Head CT (reviewed): S/P Right temporal craniotomy with right temporal arachnoid cyst, hypotrophic right temporal horn and subgaleal fluid collection. MRI of brain (reviewed): Right temp. arachnoid cyst, left mesial temporal sclerosis, possible right paramedian pontine infarct (chronic), scattered white matter Changes without enhancement after gadolinium. Urine BTZ=664. On Ceftriaxone CHUCKIE: 250 lbs. Cor reg. No bruit. Neg Lhermitte's. S/P R temporal craniotomy. Ny in situ. NEURO: Awake, alert, responsive. Static Encephalopathy. CNII-CNXII: EOM's full without nystagmus. Full gonzalez. No facial. Gag ok. Motor: L hemiplegia, flacid. Moderate right leg distal weakness. Otherwise strength normal. JULIO's preserved on R. Reflexes brisk. Plantars silent. Coordination: No R FTN dystaxia. Sensation: Decreased sensation to touch, vibration left side and right leg, distally. Gait: Deferred. Impression: 1. Congenital right temporal arachnoid cyst with hypotrophic temporal horn. 2. Temporal lobe epilepsy (Complex partial seizures) 3. Migraine headaches 4. Chronic Pain due to Migraine-related Restless Limbs syndrome (RLS). 5. Scattered, chronic white matter changes- possibly due to demyelinating disease but can also be seen with chronic migraine headaches. None of the supratentorial lesions explain the chronic left hemiparesis (but MRI may show a chronic Right paramedian pontine infarct). SUGGEST: Begin Topiramate for migraine prophylaxis (25 mg BID x 2 days then 50 mg PO BID) Continue Levetiracetam 750 q 12 hrs and split lamotrigine dose to 100 mg PO q 12 hrs. Add pramipexole 0.125 mg BID x 2 days then 0.25 mg BID after breakfast and dinner for RLS. May allow taper of narcotics, Baclofen. Cont. Gabapentin Give Sumatriptan 100 mg PO PRN headache and D/C ibuprofen, tylenol and narcotics for this indication. Thank you very much, Nadir Curran MD
[2018-12-15] MEDS: VENLAFAXINE HCL 37.5 MG E.R. CAPSULE (FP) PO SCH (13:32)
--- NOTE | 2018-12-15 13:34 | EKG ---
Test Reason : Blood Pressure : / mmHG Vent. Rate : 079 BPM Atrial Rate : 079 BPM P-R Int : 166 ms QRS Dur : 080 ms QT Int : 372 ms P-R-T Axes : 023 040 002 degrees QTc Int : 426 ms NORMAL SINUS RHYTHM NONSPECIFIC ST ABNORMALITY NO PREVIOUS ECGS AVAILABLE Confirmed by EILEEN MISHRA MD ([id number]) on 12/15/2018 1:34:13 PM Referred By: Confirmed By:EILEEN MISHRA MD
[2018-12-15] MEDS ORDERED: FENTANYL PATCH WASTE TD PRN (14:56)
[2018-12-15] MEDS ORDERED: fentaNYL 50mcg/hr PATCH.TD72 TD SCH (14:56)
[2018-12-15] MEDS: HYDROmorphone HCL 2 MG TABLET PO PRN ×2 (15:07→22:06)
--- NOTE | 2018-12-15 15:18 | PN ---
Progress Note (short form) - Note Progress Note: ID consult dictated imp/reccd symptomatic UTI vaginal candidiasisas neurogenic bladder secondary to MS chronic headaches f/u [facility] neurology to evaluate headaches
--- NOTE | 2018-12-15 15:18 | CON.ID ---
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 (epilepsy) ...LMP: 10/18/18 Psych: Yes: Anxiety, Depression, Other (ADHD) Musculoskeletal: Yes: Hemiplegia (left) - Past Surgical History Past Surgical History: Yes: Craniotomy (Crainoplasty) - Alcohol/Substance Use Hx Alcohol Use: No - Smoking History Smoking history: Never smoked - Social History ADL: Support Services History of Recent Travel: No Home Medications - Allergies Allergies/Adverse Reactions: Allergies Allergy/AdvReac Type Severity Reaction Status Date / Time No Known Allergies Allergy Verified 11/20/18 11:02 - Home Medications Home Medications: Ambulatory Orders Alprazolam [Xanax Xr] 1 mg PO Q8H 11/20/18 Baclofen [Lioresal -] 10 mg PO TID 11/20/18 Baclofen [Lioresal -] 20 mg PO HS 11/20/18 Cyanocobalamin [Vitamin B12 -] 1,000 mcg PO DAILY 11/20/18 Docusate Sodium [Colace] 100 mg PO Q8H 11/20/18 Ergocalciferol [Vitamin D2] 50,000 unit PO Q7D@1000 11/20/18 Gabapentin [Neurontin] 600 mg PO Q8H 11/20/18 Hydrocortisone 0.5% Cream [Hytone 0.5% Cream -] 1 applic TP DAILY 11/20/18 Hydromorphone HCl [Dilaudid] 8 mg PO Q6H PRN 11/20/18 Hydroxyzine Pamoate 25 mg PO TID 11/20/18 Ibuprofen [Motrin -] 400 mg PO QID PRN 11/20/18 Lamotrigine [Lamictal Xr] 200 mg PO HS 11/20/18 Levetiracetam 750 mg PO BID 11/20/18 Melatonin 10 mg PO HS 11/20/18 Nystatin Cream [Mycostatin] 1 applic TP BID 11/20/18 Pantoprazole Sodium [Protonix -] 40 mg PO DAILY 11/20/18 Ranitidine HCl [Zantac] 150 mg PO DAILY 11/20/18 Venlafaxine HCl ER [Effexor Xr -] 37.5 mg PO DAILY 11/20/18 Acetaminophen 500 mg PO TID 12/14/18 Doxepin HCl [Sinequan -] 25 mg PO HS 12/14/18 Nystatin Cream [Mycostatin] 1 applic TP BID 12/14/18 Ondansetron [Zofran -] 4 mg PO TID 12/14/18 Sennosides [Senna] 8.6 mg PO HS 12/14/18 Physical Exam Vital Signs: Vital Signs Temperature 98.4 F 12/15/18 10:00 Pulse Rate 104 H 12/15/18 10:00 Respiratory Rate 18 12/15/18 10:00 Blood Pressure 116/58 L 12/15/18 10:00 O2 Sat by Pulse Oximetry (%) 96 12/15/18 10:00 Labs: CBC, BMP 12/15/18 09:50 12/15/18 09:50
[2018-12-15] MEDS ORDERED: cefTRIAXone SODIUM 1 GM VIAL ONE (16:18)
[2018-12-15] MEDS ORDERED: DEXTROSE 5%-WATER - 50 ML IVPB ONE (16:19)
[2018-12-15] MEDS: CEFTRIAXONE 1 GM in DEXTROSE 5%-WATER - 50 ML IVPB SCH (17:58)
[2018-12-15] MEDS ORDERED: ALPRAZOLAM 1 MG PO SCH (19:00)
--- NOTE | 2018-12-15 19:34 | CONS ---
DATE OF CONSULTATION: DATE OF DICTATION: 12/15/2018 INFECTIOUS DISEASE CONSULTATION HISTORY OF PRESENT ILLNESS: This is a 28-year-old woman who was admitted on December 14 with worsening headaches. She is currently residing at the group home, and she is being followed by neurology. PAST MEDICAL HISTORY: Notable for history of MS. She is not ambulatory. She also has epilepsy, and she has had a surgical history that is notable for 3 craniotomies for arachnoid cyst, 2 last year and one 20 years ago with residual left-sided hemiplegia. She is followed by her neurologist in [place], and she is admitted after having worsening headache. She has no fevers or chills. She is nonambulatory, and she has a neurogenic bladder. She required catheterization, usually 2-4 times a day. She does not have a chronic Edmonds; one was placed last night and removed this morning. She does note that she has symptoms of suprapubic discomfort that is consistent with when she gets UTIs, which she says she gets intermittently. She has no fevers or chills. Her headache is actually improved after being seen by neurology and pain management. ALLERGIES: No known drug allergies. PAST MEDICAL HISTORY: Notable for multiple sclerosis, seizure disorder. She has a history of anxiety, depression, ADHD, and she has a left hemiparesis secondary to the prior surgeries. She has had craniotomy and a cranioplasty. She has had an arachnoid cyst that has been resected 3 times. As stated before, she has neurogenic bladder. She has a history of intermittent UTIs. SOCIAL HISTORY: There is no history of any cigarette use. She lives at the group home at support services. She has family here in the community. She has children who are 7 and 9. She reports she has had a decubitus ulcer in the past that has subsequently healed. ALLERGIES: She has no known drug allergies. MEDICATION: Her medications as an outpatient include Effexor, senna, Zantac, Protonix, Zofran, Mycostatin, melatonin, Keppra, Lamictal, hydroxyzine, Dilaudid , Neurontin, vitamin D, Colace, vitamin B12, baclofen and Xanax, as well as acetaminophen. REVIEW OF SYSTEMS: There are no fevers or chills. She has a suprapubic discomfort. She had these chronic headaches, and she notes that she has had some vaginal itching as well, and is concerned that she has a vaginal yeast infection. PHYSICAL EXAMINATION: GENERAL: She is an obese woman in no acute distress. VITAL SIGNS: Temperature 98.5, pulse 99, blood pressure 116/67, respiratory rate 18, she is saturating 96%. HEENT: Normocephalic. Eyes are anicteric. She has a scar on the right temporal area of her face. No erythema. It is well healed. NECK: Supple. LUNGS: Clear to auscultation. HEART: Regular rate and rhythm. ABDOMEN: Soft, nontender. She has some mild suprapubic discomfort. EXTREMITIES: Without edema. White count is 6.5, hemoglobin 12.3, platelets are 341, BUN and creatinine are 6 and 0.4. LFTs are normal. test is negative. Urinalysis is 3+ leukocytes with 563 white cells, and urine culture is pending. She has had brain imaging that is notable for no acute intracranial hemorrhage, edema, or midline shift, no acute CVA. She has had a right temporal craniectomy with cranioplasty and right temporal lobe encephalomalacia. IMPRESSION: In summary, this is a 28-year-old woman with multiple sclerosis who has a neurogenic bladder and gets daily straight catheterizations several times a day who is complaining of symptomatic urinary tract infection. She has pyuria. Urine culture is pending. Would suggest we treat her with ceftriaxone for now, and adjust antibiotics as needed. Her further headaches are being evaluated by neurology. Lastly, she complains of vaginal candidiasis, and miconazole suppositories have been ordered. JALYN POLO M.D. [id number] MTDD
[2018-12-15] MEDS ORDERED: levETIRAcetam 500 MG TABLET (FP) PO ONE (21:32)
[2018-12-15] MEDS ORDERED: levETIRAcetam 250 MG TABLET (FP) PO ONE (21:32)
[2018-12-15] MEDS: PRAMIPEXOLE DIHYDROCHLORIDE 0.125 MG TABLET PO SCH (21:53)
[2018-12-15] MEDS: ALPRAZolam 0.25 MG TABLET PO PRN (21:53)
[2018-12-15] MEDS: TOPIRAMATE 25 MG TABLET (FP) PO SCH (21:54)
[2018-12-15] MEDS ORDERED: MICONAZOLE NITRATE 100 MG SUPP SUPP.VAG PV SCH (22:00)
[2018-12-15] MEDS ORDERED: DOXEPIN HCL 25 MG CAPSULE PO SCH (22:00)
[2018-12-15] MEDS ORDERED: SENNOSIDES 8.6MG TABLET (FP) PO SCH (22:00)
[2018-12-15] MEDS ORDERED: lamoTRIgine 100 MG TABLET (FP) PO SCH (22:00)
[2018-12-15] MEDS ORDERED: BACLOFEN 10 MG TABLET (FP) PO SCH (22:00)
[2018-12-15] MEDS ORDERED: MICONAZOLE NITRATE 200 MG VAGINAL SUPPOSITORY PV SCH (22:00)
[2018-12-16] MEDS: SUMAtriptan SUCCINATE 50 MG TABLET PO PRN ×2 (02:44→18:23)
[2018-12-16] MEDS: BACLOFEN 10 MG TABLET (FP) PO SCH ×2 (05:29→14:14)
[2018-12-16] MEDS: HYDROmorphone HCL 2 MG TABLET PO PRN ×2 (05:30→14:13)
[2018-12-16] MEDS: GABAPENTIN 300 MG CAPSULE (FP) PO SCH ×2 (05:30→14:12)
[2018-12-16] MEDS: DOCUSATE SODIUM 100 MG CAPSULE (FP) PO SCH ×2 (05:30→13:49)
[2018-12-16] MEDS: PRAMIPEXOLE DIHYDROCHLORIDE 0.125 MG TABLET PO SCH ×2 (05:31→14:15)
[2018-12-16] MEDS ORDERED: ONDANSETRON 4 MG TABLET PO ONE (06:32)
[2018-12-16 07:49] LABS: ALBUMIN 3.6 g/dl (3.4-5.0); BILIRUBIN,TOTAL 0.4 mg/dL (0.2-1); CALCIUM 9.2 mg/dL (8.5-10.1); CREATININE 0.5 mg/dL (0.55-1.3); POTASSIUM 3.6 mmol/L (3.5-5.1); TOT PROT 6.9 g/dl (6.4-8.2)
[2018-12-16] MEDS ORDERED: levETIRAcetam 250 MG TABLET (FP) PO ONE (09:59)
[2018-12-16] MEDS ORDERED: levETIRAcetam 500 MG TABLET (FP) PO ONE (09:59)
[2018-12-16] MEDS ORDERED: DEXTROSE 5%-WATER - 50 ML IVPB ONE (10:00)
[2018-12-16] MEDS ORDERED: PT OWN MED DRAWER 7, Y5N ONE (10:00)
[2018-12-16] MEDS ORDERED: cefTRIAXone SODIUM 1 GM VIAL ONE (10:00)
[2018-12-16 10:08] LABS: BASO % 0.2 % (0-2.0); EOS % 0.8 % (0-4.5); HEMATOCRIT 36.2 % (32.4-45.2); HEMOGLOBIN 12.6 GM/dL (10.7-15.3); LYMPH % 22.3 % (8-40); MCHC 34.7 g/dl (32.0-36.0); MEAN CELL VOLUME 92.1 fl (80-96); MEAN PLT VOLUME 8.5 fl (7.5-11.1); MONO % 7.1 % (3.8-10.2); NEUT % 69.6 % (42.8-82.8); RBC 3.93 M/mm3 (3.60-5.2); RDW 11.5 % (11.6-15.6); WHITE BLOOD COUNT 7.4 K/mm3 (4.0-10.0)
[2018-12-16] MEDS: CEFTRIAXONE 1 GM in DEXTROSE 5%-WATER - 50 ML IVPB SCH (10:11)
[2018-12-16] MEDS: RANITIDINE HCL 150 MG TABLET (FP) PO SCH (10:12)
[2018-12-16] MEDS: TOPIRAMATE 25 MG TABLET (FP) PO SCH (10:12)
[2018-12-16] MEDS: PANTOPRAZOLE 40 MG TABLET (FP) PO SCH (10:12)
[2018-12-16] MEDS: VENLAFAXINE HCL 37.5 MG E.R. CAPSULE (FP) PO SCH (10:12)
[2018-12-16 10:32] LABS: PLATELET COUNT 329 K/MM3 (134-434)
[2018-12-16] MEDS: ALPRAZolam 0.25 MG TABLET PO PRN (12:17)
[2018-12-16] MEDS ORDERED: TOPIRAMATE 25 MG TABLET (FP) PO SCH (13:00)
--- NOTE | 2018-12-16 13:32 | DS ---
Physical Examination Vital Signs: Vital Signs Temperature 98.3 F 12/16/18 10:03 Pulse Rate 93 H 12/16/18 10:03 Respiratory Rate 18 12/16/18 10:03 Blood Pressure 112/83 12/16/18 10:03 O2 Sat by Pulse Oximetry (%) 100 12/16/18 10:00 Findings/Remarks: Patient is a 28 y/o female with past medical history of brain surgery x 3 for removal of arachnoid cyst, L hemiplegia (complication from surgery), MS, Epilpesy, Depression, ANxiety, ADHD. Patient presented to ER after 1 week of JUNE and swelling to R temporal aspect of head. Headache is described as throbbingbegins on R side of head then radiates to entire head and down neck accompanied with photophobia. RN at [facility] noted patient with R eyelid droop. Constitutional: Yes: No Distress, Calm, Obese Eyes: Yes: Conjunctiva Clear HENT: Yes: Atraumatic Cardiovascular: Yes: Regular Rate and Rhythm Respiratory: Yes: Regular, CTA Bilaterally Gastrointestinal: Yes: Normal Bowel Sounds, Soft, Abdomen, Obese Musculoskeletal: Yes: Muscle Weakness Extremities: Yes: WNL Edema: No Neurological: Yes: Alert, Other (L sided hemiplegia) Psychiatric: Yes: Alert, Oriented Labs: CBC, BMP 12/16/18 06:50 12/16/18 06:50 Microbiology 12/14/18 19:03 Urine - Urine Edmonds Urine Culture - Preliminary Lactose Fermenting Neg Bacilli Discharge Summary Reason For Visit: HEADACHE Current Active Problems ADHD (Acute) Anxiety (Acute) Arachnoid cyst (Acute) Depression (Acute) Epilepsy (Acute) Headache (Acute) Left hemiplegia (Acute) Multiple sclerosis (Acute) Right facial swelling (Acute) UTI (urinary tract infection) (Acute) Hospital Course: see progress notes Laboratory Tests 12/14/18 12/14/18 12/14/18 18:19 18:19 18:19 WBC 6.6 RBC 3.81 Hgb 12.0 Hct 34.9 MCV 91.7 MCH 31.6 MCHC 34.4 RDW 11.6 Plt Count 342 MPV 7.9 Absolute Neuts (auto) 3.9 Neutrophils % 58.3 Lymphocytes % 29.2 D Monocytes % 9.7 Eosinophils % 2.5 Basophils % 0.3 Nucleated RBC % 0 Sodium 140 Potassium 4.0 Chloride 106 Carbon Dioxide 30 Anion Gap 4 L BUN 8.3 Creatinine 0.6 Est GFR (CKD-EPI)AfAm 142.76 Est GFR (CKD-EPI)NonAf 123.17 Random Glucose 91 Calcium 8.8 Total Bilirubin 0.2 AST 12 L ALT 19 Alkaline Phosphatase 69 Total Protein 6.7 Albumin 3.6 Serum , Qual Negative Urine Color Urine Appearance Urine pH Ur Specific Webster Urine Protein Urine Glucose (UA) Urine Ketones Urine Blood Urine Nitrite Urine Bilirubin Urine Urobilinogen Ur Leukocyte Esterase Urine WBC (Auto) Urine RBC (Auto) Urine Casts (Auto) U Pathogenic Cast Auto U Epithel Cells (Auto) Urine Bacteria (Auto) 12/14/18 12/15/18 12/15/18 19:03 09:50 09:50 WBC 6.5 RBC 3.90 Hgb 12.3 Hct 35.7 MCV 91.4 MCH 31.6 MCHC 34.6 RDW 11.5 L Plt Count 341 MPV 8.2 Absolute Neuts (auto) 4.2 Neutrophils % 65.7 Lymphocytes % 23.7 Monocytes % 8.3 Eosinophils % 2.1 Basophils % 0.2 Nucleated RBC % 0 Sodium 142 Potassium 4.2 Chloride 108 H Carbon Dioxide 28 Anion Gap 5 L BUN 6.4 L Creatinine 0.4 L Est GFR (CKD-EPI)AfAm 163.13 Est GFR (CKD-EPI)NonAf 140.75 Random Glucose 90 Calcium 8.7 Total Bilirubin AST ALT Alkaline Phosphatase Total Protein Albumin Serum , Qual Urine Color Yellow Urine Appearance Turbid Urine pH 5.0 D Ur Specific Webster 1.021 Urine Protein Trace Urine Glucose (UA) Negative Urine Ketones Negative Urine Blood Trace Urine Nitrite Positive H Urine Bilirubin Negative Urine Urobilinogen 0.2 Ur Leukocyte Esterase 3+ H Urine WBC (Auto) 563 Urine RBC (Auto) 5 Urine Casts (Auto) 29 U Pathogenic Cast Auto None U Epithel Cells (Auto) 4.2 Urine Bacteria (Auto) 6925.0 12/16/18 12/16/18 06:50 06:50 WBC 7.4 RBC 3.93 Hgb 12.6 Hct 36.2 MCV 92.1 MCH 32.0 MCHC 34.7 RDW 11.5 L Plt Count 329 MPV 8.5 Absolute Neuts (auto) 5.2 Neutrophils % 69.6 Lymphocytes % 22.3 Monocytes % 7.1 Eosinophils % 0.8 Basophils % 0.2 Nucleated RBC % 0 Sodium 143 Potassium 3.6 Chloride 108 H Carbon Dioxide 27 Anion Gap 7 L BUN 6.0 L Creatinine 0.5 L Est GFR (CKD-EPI)AfAm 151.59 Est GFR (CKD-EPI)NonAf 130.79 Random Glucose 100 Calcium 9.2 Total Bilirubin 0.4 AST 10 L ALT 18 Alkaline Phosphatase 70 Total Protein 6.9 Albumin 3.6 Serum , Qual Urine Color Urine Appearance Urine pH Ur Specific Webster Urine Protein Urine Glucose (UA) Urine Ketones Urine Blood Urine Nitrite Urine Bilirubin Urine Urobilinogen Ur Leukocyte Esterase Urine WBC (Auto) Urine RBC (Auto) Urine Casts (Auto) U Pathogenic Cast Auto U Epithel Cells (Auto) Urine Bacteria (Auto) Active Medications Generic Name Dose Route Start Last Admin Trade Name Freq PRN Reason Stop Dose Admin Alprazolam 1 mg 12/15/18 19:02 12/16/18 12:17 Xanax - PO 1 mg Q8H PRN Administration ANXIETY Baclofen 20 mg 12/15/18 22:00 12/15/18 22:07 Lioresal - PO 20 mg HS LEX Administration Baclofen 10 mg 12/15/18 06:00 12/16/18 05:29 Lioresal - PO 10 mg TID LEX Administration Docusate Sodium 100 mg 12/15/18 02:58 12/16/18 05:30 Colace - PO 100 mg TID LEX Administration Doxepin HCl 25 mg 12/15/18 22:00 12/15/18 22:10 Sinequan - PO 25 mg HS LEX Administration Gabapentin 600 mg 12/15/18 02:45 12/16/18 05:30 Neurontin - PO 600 mg TID LEX Administration Hydromorphone HCl 2 mg 12/15/18 14:15 12/16/18 05:30 Dilaudid - PO 2 mg Q6H PRN Administration PAIN LEVEL 5-10 Lamotrigine 100 mg 12/16/18 22:00 Lamictal - PO BID LEX Levetiracetam 500 mg/ 750 mg 12/15/18 02:45 12/16/18 10:11 Levetiracetam 250 mg PO 750 mg BID LEX Administration Miconazole Nitrate 200 mg 12/15/18 22:00 12/16/18 06:56 Miconazole 3 PV 12/17/18 22:01 Not Given HS LEX Miscellaneous 1 each 12/14/18 22:00 12/15/18 22:06 Lidoderm Patch Removal MC 1 each DAILY@2200 LEX Administration Pantoprazole Sodium 40 mg 12/15/18 10:00 12/16/18 10:12 Protonix - PO 40 mg DAILY LEX Administration Pramipexole Dihydrochloride 0.125 mg 12/15/18 22:00 12/16/18 05:31 Mirapex - PO 0.125 mg TID LEX Administration Ranitidine HCl 150 mg 12/15/18 10:00 12/16/18 10:12 Zantac - PO 150 mg DAILY LEX Administration Senna 1 tab 12/15/18 22:00 12/15/18 21:54 Senna - PO 1 tab HS LEX Administration Sumatriptan Succinate 100 mg 12/15/18 21:14 12/16/18 02:44 Imitrex - PO 100 mg PRN PRN Administration HEADACHE(MAX 200MG/24HRS Topiramate 50 mg 12/16/18 13:00 12/16/18 13:05 Topamax - PO Not Given BID LEX Trimethoprim/Sulfamethoxazole 1 each 12/16/18 22:00 Bactrim Ds - PO BID [facility] Venlafaxine HCl 37.5 mg 12/15/18 10:00 12/16/18 10:12 Effexor Xr - PO 37.5 mg DAILY LEX Administration Microbiology 12/14/18 19:03 Urine - Urine Edmonds Urine Culture - Preliminary Lactose Fermenting Neg Bacilli Condition: Stable - Instructions Diet, Activity, Other Instructions: Follow up with pmd follow up with Neurologist Dr Curran continue with medication as prescribed and continue antibiotics until finished starting on 12/17/18 Mirapex 0.25mg PO BID return to ER if develop fever, AMS, respiratory distress, chest pain cervical spine MRI as outpatient Referrals: Nadir Curran MD [Staff Physician] - Disposition: [facility] FACILITY - Home Medications Comprehensive Discharge Medication List: Ambulatory Orders Alprazolam [Xanax Xr] 1 mg PO Q8H 11/20/18 Baclofen [Lioresal -] 10 mg PO TID 11/20/18 Baclofen [Lioresal -] 20 mg PO HS 11/20/18 Cyanocobalamin [Vitamin B12 -] 1,000 mcg PO DAILY 11/20/18 Docusate Sodium [Colace] 100 mg PO Q8H 11/20/18 Ergocalciferol [Vitamin D2] 50,000 unit PO Q7D@1000 11/20/18 Gabapentin [Neurontin] 600 mg PO Q8H 11/20/18 Hydrocortisone 0.5% Cream [Hytone 0.5% Cream -] 1 applic TP DAILY 11/20/18 Hydromorphone HCl [Dilaudid] 8 mg PO Q6H PRN 11/20/18 Hydroxyzine Pamoate 25 mg PO TID 11/20/18 Ibuprofen [Motrin -] 400 mg PO QID PRN 11/20/18 Levetiracetam 750 mg PO BID 11/20/18 Melatonin 10 mg PO HS 11/20/18 Nystatin Cream [Mycostatin Cream -] 1 applic TP BID 11/20/18 Pantoprazole Sodium [Protonix -] 40 mg PO DAILY 11/20/18 Ranitidine HCl [Zantac] 150 mg PO DAILY 11/20/18 Venlafaxine HCl ER [Effexor Xr -] 37.5 mg PO DAILY 11/20/18 Acetaminophen 500 mg PO TID 12/14/18 Doxepin HCl [Sinequan -] 25 mg PO HS 12/14/18 Nystatin Cream [Mycostatin] 1 applic TP BID 12/14/18 Ondansetron [Zofran -] 4 mg PO TID 12/14/18 Sennosides [Senna] 8.6 mg PO HS 12/14/18 Acetaminophen [Tylenol .Regular Strength -] 650 mg PO Q6H PRN tablet 12/16/18 Alprazolam [Xanax] 1 mg PO Q8H PRN tablet MDD 3 12/16/18 Lamotrigine [LaMICtal -] 100 mg PO BID tablet 12/16/18 Lidocaine Patch Removal [Lidoderm Patch Removal] 1 each MC DAILY@2200 each Miconazole Nitrate [Miconazole 3] 200 mg PV HS supp.vag 12/16/18 Pramipexole Dihydrochloride [Mirapex -] 0.125 mg PO TID tablet 12/16/18 Sulfamethoxazole/Trimethoprim [Bactrim Ds -] 1 tab PO BID #14 tablet 12/16/18 Sumatriptan Succinate [Imitrex -] 100 mg PO PRN PRN tablet 12/16/18 Topiramate [Topamax -] 50 mg PO BID tablet 12/16/18 levETIRAcetam [Keppra -] 750 mg PO BID tablet 12/16/18
[2018-12-16 18:37] VITALS: BP 111/84; PULSE 102; TEMP 98.4
[2018-12-16] MEDS ORDERED: SULFAMETHOXAZOLE/TRIMETHOPRIM 800MG/160MG D.S. TABLET PO SCH (22:00)
[2018-12-16] MEDS ORDERED: lamoTRIgine 100 MG TABLET (FP) PO SCH (22:00)
== END 2018-12-16 19:11 | DRG 58 ==
LOC: JER 16:30 → JERBED 21:09 → J5S 12-15 04:36
PROVIDERS: ADMIT Family Medicine; ATTEND Family Medicine
DX: G93.0 Cerebral cysts (principal); N39.0 Urinary tract infection, site not specified; G35 Multiple sclerosis; G81.94 Hemiplegia, unspecified affecting left nondominant side; G43.909 Migraine, unspecified, not intractable, without status migrainosus; F41.9 Anxiety disorder, unspecified; E66.9 Obesity, unspecified; G40.909 Epilepsy, unspecified, not intractable, without status epilepticus; F90.1 Attention-deficit hyperactivity disorder, predominantly hyperactive type; F32.9 Major depressive disorder, single episode, unspecified; G89.29 Other chronic pain; G25.81 Restless legs syndrome; B37.3 Candidiasis of vulva and vagina; N31.9 Neuromuscular dysfunction of bladder, unspecified; Z68.41 Body mass index [BMI] 40.0-44.9, adult
CPT/HCPCS: 36415; 70450-TC; 70552-TC; 71045-TC-FY; 80048; 80053; 81003; 84703; 85025; 87086; 87186; 93005; 93010; 99285-25; A9579; J0131; J0475